=== PATIENT | female | born 1980 ===

== ENCOUNTER 2017-10-21 05:59 | Inpatient (IN) | payer BC, OTHER ==
[2017-10-21 06:22] VITALS: BMI 36.5
[2017-10-21 06:59] LABS: HEMOGLOBIN 12.9 g/dL (12.0-16.0); MEAN CELL VOLUME 89.6 fl (81.0-99.0); MEAN CORPUSCULAR HEMOGLOBIN 29.1 pg (27.0-31.0); MEAN CORPUSCULAR HGB CONC 32.5 g/dL (33.0-37.0); RBC 4.43 Mil/uL (3.80-5.20); RED CELL DISTRIBUTION WIDTH 13.4 % (11.5-14.5); WHITE BLOOD COUNT 5.1 K/uL (4.8-10.8)
[2017-10-21] MEDS ORDERED: Lactated Ringer's 1,000 ML IV ONE ×3 (07:24→09:40)
[2017-10-21] MEDS ORDERED: Propofol 10 mg/ml Inj (20 ML) ONE (07:34)
[2017-10-21] MEDS ORDERED: Rocuronium 10 mg/ml (5 ml) ONE ×2 (07:35→11:34)
[2017-10-21] MEDS ORDERED: Midazolam 2 MG/2 ML VIAL ONE (07:35)
[2017-10-21] MEDS ORDERED: ePHEDrine 50 mg/ml Inj ONE (07:35)
[2017-10-21] MEDS ORDERED: Succinylcholine 200 mg/10 ml Inj IV ONE (07:36)
[2017-10-21] MEDS ORDERED: Lidocaine 4% (Laryng-O-Jet) Kit MM ONE (07:37)
[2017-10-21] MEDS ORDERED: Bupivacaine 0.5% Inj(30mL) ONE (07:39)
[2017-10-21] MEDS ORDERED: Dexamethasone 4 mg/1 ml ONE (09:44)
[2017-10-21] MEDS ORDERED: Neostigmine Methylsulfate 3mg/3ml Syringe IV ONE (09:45)
[2017-10-21] MEDS ORDERED: Desflurane Inhalation Anesthetic Liq (240 ml) ONE ×2 (10:18→13:58)
[2017-10-21] MEDS ORDERED: HYDROmorphone 0.5 mg/0.5 ml ISec IVP PRN (14:34)
[2017-10-21] MEDS: HYDROmorphone 0.5 mg/0.5 ml ISec IVP PRN ×6 (14:40→15:58)
[2017-10-21] MEDS ORDERED: Lactated Ringer's 1,000 ML IV SCH (14:45)
[2017-10-21] MEDS: ceFAZolin 1 GM in Sodium Chloride 0.9% 100 ML IVPB SCH (15:00)
--- NOTE | 2017-10-21 18:59 | OP ---
PROCEDURE DATE: 10/21/2017 SURGEON: Jose L Beltrán MD. ASSISTED BY: Aj Villegas MD and about 2 hours into the surgery by Dr. Sahu. PREOPERATIVE DIAGNOSES: Pelvic pain; bladder pain; abdominal pain; lower back pain; sciatic pain; history of advanced endometriosis, stage IV; left ovarian cyst. POSTOPERATIVE DIAGNOSES: Pelvic pain; bladder pain; abdominal pain; lower back pain; sciatic pain; history of advanced endometriosis, stage IV; left ovarian cyst plus stage IV endometriosis extending to the sigmoid, the cecum and appendix and the right hemidiaphragm. PROCEDURE PERFORMED: A cystoscopy with bilateral ureteral catheterization and injection of ICG dye; hysteroscopy, diagnostic; da April robotic excision of endometriosis; excision of anterior bladder mass; left salpingectomy; left ovarian cystectomy and removal of endometrioma; bilateral ureterolysis and to be dictated separately by Dr. Villegas as a separate procedure, multiple excision of rectosigmoid masses, right appendectomy and excision of diaphragmatic endometriosis and repair. He will dictate these separately. ANESTHESIA: General endotracheal. ANESTHESIOLOGIST: Ashlyn Rodriguez MD. ESTIMATED BLOOD LOSS: 100 mL. FLUIDS: 1800 mL. URINE OUTPUT: 500 mL. PATHOLOGY: Samples of extensive peritoneal endometriosis from the left pelvic sidewall, left ovarian fossa, left periureteral, right periureteral, right ovarian fossa, posterior cervical, anterior rectal, anterior bladder wall, appendix, portion of cecum and portion of diaphragm. COMPLICATIONS: None. INDICATION FOR THE PROCEDURE: The patient is a 37-year-old female who presented with a prolonged history of severe pain, not controlled with medical treatment. The patient had a prior surgery at [facility] in [place] with gynecologic-oncology, it was an extensive operation, but the patient underwent recurrence within a year with both clinical and ultrasonographic evidence of recurrent pelvic mass, a completely obliterated cul-de-sac and extensive pelvic adhesions. The patient was counseled with regards to the benefits of the surgery and the likelihood of the surgery to solve her problem as well as with the potential risks of the surgery involving both bladder and bowel complications including, but not limited to fistulas, leak of bowel repairs as well as potential need for a chest tube if endometriosis on the diaphragm. After adequate counseling, the patient signed a consent and she was taken to the OR. DESCRIPTION OF PROCEDURE: After adequate anesthesia, the patient was placed in a dorsal lithotomy position and she was prepped and draped with greater tension to avoid any part of the body that will be subjected to pressure and those parts of the body were extensively padded. At this point, a timeout was called according to hospital policies and after this was done, attention was in the vaginal area where a cystoscope was inserted into the urethra under direct visualization. A pancystoscopy was performed revealing no evidence of mucosal lesions although there appeared to be an area of compression on the dome of the bladder. Both ureteral ostia were in the normal anatomical position and the left ureter at that point was cannulized utilizing a 5-Greenlandic open-ended catheter and 5 mL were injected of IC Green into the distal catheter. After removing the catheter, attention was on the right side where the open-ended catheter was advanced to the distal ureter and 5 mL of IC Green were injected into the distal ureter. This procedure was essential to the performance of this extremely difficult procedure. At this point, the cystoscope was removed and a 16-Greenlandic Renner was replaced. Attention was then in the vaginal area where a speculum was placed in the vagina. The anterior lip of the cervix was grasped and the cervix was dilated. At this point, the uterine manipulator was placed in the uterus and attention was at the abdomen where an open laparoscopy technique was used to enter the umbilicus and enter the peritoneum, which was entered in a blunt fashion and the cannula was then placed. The abdomen was desufflated and under direct visualization, three additional trocars were placed, an 8 mm left upper quadrant, a 10 mm left mid quadrant and an 8 mm right upper quadrant. At this point, the abdomen and pelvis was visualized with the following findings. There were endometriotic implants in the right hemidiaphragm and in the pericardial area. There were endometriosis implants on the cecum right by the ileocecal valve and on the right appendix. There were endometriosis implants on the anterior bladder with a very large bladder mass, thick involving all the way almost down to the round ligament on the left. There were endometriosis implants on the left fallopian tube, which was completely distorted and it lost its normal structure. There was a large 7 cm left ovarian endometrioma. The cul-de-sac was completely obliterated with significant endometriotic implants in the anterior aspect of the sigmoid and the right ovary was attached to the right pelvic sidewall. The first part of the procedure at this point utilizing robotic scissors and the bipolar grasper, the ovary was elevated and the endometrioma was drained with minimal spillage. At this point, the ovary was completely elevated out of the pelvis and the left ureter was visualized. The uterus was twisted towards the right hand side. The peritoneum was then grasped and the retroperitoneal space was entered. The ureter was identified utilizing fluorescent technology and a full dissection was performed opening up the peritoneum and lateralizing the ureter. Similarly on the right hand side, the right ovary was also elevated with some difficulty. Large amounts of chocolate type fluid appeared to come out, out of a pocket that was created, but it was not endometrioma. The ureter again on the right hand side was identified and it was followed all the way down from the pelvic rim all the way to the ureteral canal. On the right hand side, there were very significant fibrotic adhesions involving the right ureter. The ureter was firmly attached and kinked by fibrotic adhesions. A very careful dissection was performed dissecting completely the ovarian fossa and freeing up the ureter, which was also slightly kinked with a large amount of fibrotic tissue being removed. Multiple samples were sent then to pathology. At this point, attention was on the posterior aspect of the uterus where an extensive area of fibrotic endometriosis, deep infiltrating, was visible on the left ovarian fossa. This was dissected completely with extreme care to avoid the ovarian artery as well as the ureter, which was always kept in vision utilizing fluorescent technology. Once this was done, Dr. Villegas took over the console and dissected the rectum off the posterior aspect of the uterus. He will dictate this procedure separately. Additionally Dr. Villegas dissected multiple superficial endometriotic lesions on the serosa of the rectum, which were dissected off without entering the cavity. At this point, attention was on the anterior aspect of the uterus where a large bladder wall mass containing endometriosis was progressively dissected without entering the bladder proper or damaging the muscularis. This large mass was dissected off with great care and again sent over to Pathology. The left fallopian tube was completely destroyed by the endometriosis and it did not have a normal shape and had deep invasive lesions of endometriosis. So, as this was prior discussed with the patient and which the patient was consented for, a left salpingectomy was performed cutting along the mesosalpinx with extreme care not to damage any vascular supply to the ovary. At this point, a left ovarian cystectomy was performed by bluntly the endometrioma from the healthy ovarian tissue, this was removed in total in one sample and sent over to Pathology. There was minimal bleeding from this procedure. At this point, it was checked for hemostasis, there appeared to be excellent and Dr. Villegas will dictate separately in detail, but I will just summarize that this was a 3-step procedure, which involved undocking and re-docking and repositioning the da April robot, two additional times, one to proceed with the dissection of endometriosis by the cecum as well as the appendix and the second time and third part of the procedure were excision of diaphragmatic endometriosis was performed on the diaphragm. At the end of the procedure, it was checked for hemostasis, there appeared to be excellent. The robot was undocked, the abdomen was desufflated, the instruments were removed and the incision was closed in layers with 0-PDS for the fascia and 4-0 Monocryl for the skin. At the end of the procedure, all tapes and instruments were correct. The patient tolerated the procedure well, was taken to recovery room in excellent condition. Jose L Beltrán MD
--- NOTE | 2017-10-21 19:02 | RAD ---
PROCEDURE: CHEST RADIOGRAPH, 1 VIEW HISTORY: post op eval COMPARISON: None available. FINDINGS: LUNGS: Patient rotated toward the left. For questionable fibrotic changes identified in the inferior lung zones medially bilaterally though limited airspace disease not excluded here on acute or subacute basis. Further clinical correlation is advised. PLEURA: No pneumothorax or pleural fluid seen. CARDIOVASCULAR: Normal. OSSEOUS STRUCTURES: No significant abnormalities. VISUALIZED UPPER ABDOMEN: Normal. OTHER FINDINGS: None. IMPRESSION: Questionable airspace disease medial bases bilaterally with linear atelectasis or fibrosis seen at the bases as well.
[2017-10-21] MEDS: Lactated Ringer's 1,000 ML IV SCH (23:08)
[2017-10-22] MEDS: ceFAZolin 1 GM in Sodium Chloride 0.9% 100 ML IVPB SCH ×2 (04:05→04:07)
[2017-10-22] MEDS: Oxycodone/Acetaminophen 5/325 mg Tab PO PRN ×2 (04:14→08:42)
[2017-10-22] MEDS: Lactated Ringer's 1,000 ML IV SCH (06:47)
--- NOTE | 2017-10-22 07:52 | CP.PCM.DIS ---
Provider - Provider Date of Admission: 10/21/17 15:11 Attending physician: Jose L Beltrán Primary care physician: Jose L Beltrán Consults: None Time Spent in preparation of Discharge (in minutes): 35 Diagnosis - Discharge Diagnosis (1) Endometriosis Status: Acute (2) Endometriosis of appendix Status: Acute (3) Endometriosis of bladder Status: Acute (4) Endometriosis of colon Status: Acute (5) Endometriosis of fallopian tube Status: Acute (6) Endometriosis of intestine Status: Acute (7) Endometriosis of pelvis Status: Acute (8) Endometriosis of peritoneum Status: Acute (9) Endometriosis of uterus Status: Acute (10) Endometriosis, rectum Status: Acute (11) Endometriosis, ovary Status: Acute (12) Endometriosis, severe Status: Acute (13) Implanted endometriosis Status: Acute (14) Endometriosis, site unspecified Status: Acute (15) Ovarian cyst, left Status: Acute (16) S/P cystoscopy Status: Acute (17) Status post hysteroscopy Status: Acute (18) Ureteral adhesion, left Status: Acute (19) Ureteral adhesion, right Status: Acute (20) Endometrioma of ovary Status: Acute Hospital Course - Lab Results Lab Results: Most Recent Lab Values WBC 5.1 K/uL (4.8-10.8) 10/21/17 06:40 RBC 4.43 Mil/uL (3.80-5.20) 10/21/17 06:40 Hgb 12.9 g/dL (12.0-16.0) 10/21/17 06:40 Hct 39.7 % (34.0-47.0) 10/21/17 06:40 MCV 89.6 fl (81.0-99.0) 10/21/17 06:40 MCH 29.1 pg (27.0-31.0) 10/21/17 06:40 MCHC 32.5 g/dL (33.0-37.0) L 10/21/17 06:40 RDW 13.4 % (11.5-14.5) 10/21/17 06:40 Plt Count 207 K/uL (130-400) 10/21/17 06:40 Blood Type A POSITIVE 10/21/17 06:40 Blood Type Confirm A POSITIVE 10/21/17 08:10 Antibody Screen Negative 10/21/17 06:40 BBK History Checked No verified bt 10/21/17 06:40 - Hospital Course Hospital Course: 37F w/PMH sig for endometriosis admitted s/p cystoscopy w/bilateral uteral catetherization, injection of ICG dye, diagnostic hysteroscopy, da April robotic excision of extensive endometriosis, excision of anterior bladder mass, Left salpinectomy, Left ovarian cystectomy and removal of endometrioma; bilateral ureterolysis, multiple excisions of rectosigmoid masses, appendectomy with resection of cecum, excision of diaphragmatic endometriosis and repair. Pt did well overnight, pain well controlled. Renner was removed this AM- pt urinated post removal. Tolerating diet. Pt stable and ready to be discharged home. Diagnoses Extensive endometriosis Lesions on appendix Lesions on rectosigmoid Lesions on diaphragm Lesions on Left fallopian tube Left ovarian cyst Left ovarian endometrioma Lesions on bilateral ureters Diagnostic hysteroscopy Cystoscopy Discharge Exam - Head Exam Head Exam: ATRAUMATIC, NORMAL INSPECTION, NORMOCEPHALIC - Eye Exam Eye Exam: EOMI, Normal appearance - ENT Exam ENT Exam: Mucous Membranes Moist, Normal Exam - Neck Exam Neck exam: Full Rom, Normal Inspection - Respiratory Exam Respiratory Exam: NORMAL BREATHING PATTERN, UNREMARKABLE - Cardiovascular Exam Cardiovascular Exam: REGULAR RHYTHM, +S1, +S2 - GI/Abdominal Exam GI & Abdominal Exam: Soft, Tenderness (over surgical incision sites x 4). absent: Distended, Firm, Guarding, Rigid - Extremities Exam Extremities exam: normal inspection - Neurological Exam Neurological exam: Alert, CN II-XII Intact, Oriented x3 - Psychiatric Exam Psychiatric exam: Normal Affect, Normal Mood - Skin Skin Exam: Dry, Intact, Normal Color, Warm Additional comments: abdomen with island bandaids x 4; scant dried sanguinous strike through. Discharge Plan - Follow Up Plan Condition: GOOD Disposition: HOME/ ROUTINE Instructions: Endometriosis (DC) Additional Instructions: Please follow up with Dr. Beltrán in the office- call for an appointment in 1-2 weeks. No heavy lifting until cleared by Dr. Beltrán. You have outer bandaids which may be removed tomorrow. Do not shower until they are removed. Under the bandaids are a special glue- do not remove this, it will fall off on its' ok , ok to shower with it, gently washing with soap and water. Ok to resume normal diet. Please return to hospital if you start to experience fevers or chills. Prescription for pain medications already given to . Referrals: Jose L Beltrán [Primary Care Provider] -
[2017-10-22 11:04] VITALS: BP 109/60; PULSE 84; RESP 17; TEMP 99.9; O2SAT 98
[2017-10-22] MEDS ORDERED: ceFAZolin 1 GM in Sodium Chloride 0.9% 100 ML IVPB SCH (16:00)
--- NOTE | 2017-10-30 09:04 | PCM.OP ---
Operative Report - Operative Report Date of Surgery/Procedure: 10/21/17 Time of Surgery/Procedure: 10:00 Surgeon: Dr. Aj Villegas [employer] Motor Mechanic: Dr. Jose L Beltrán Anesthesia/Sedation: general/Dr. Rodriguez Pre-Operative Diagnosis: Abdominal pain and endometriosis Post-Operative Diagnosis: Abdominal pain and endometriosis involving the rectum , cecum and diaphragm Indication for Surgery: as above Operative Findings: Endometriosis involving the rectum, cecum (right colon) and diaphragm Procedure/Operation Description: 1-Complex excision right diaphragm endometriosis with complex repair. 2-Right colectomy (ceceum and appendix). 3- Excision multiple rectal endometriosis (times 3). Brief Histroy: This is a 37 year old woman brought to the operating room by Dr. Jose L Beltrán for abdominal pain and endometriosis. During the intital robotic exploration he noted multiple lesions invovling the rectum, cecum (right colon and appendix) and the right diaphragm. Dr. Beltrán requested intraoperative consultation and this is th report of that request. Description of the procedure: The patient had already been brought to the operating room by Dr. Beltrán (separate dictation Dr. Beltrán). After taking conrol of the robotic consule the first group of lesions involving the rectum were examined and with blunt and sharp dissection the first (of three)rectal lesion was incised circumfernetially with electrocautery and with blunt and sharp dissection it was dissected from the rectal wall. This first specimen was appropirately marked and sent to aptholgy separately. The other two rectal lesions were excised completely in a similar manner and sent to pathology each separately. Our attention then turned to the appendix and cecum. As the lesions invovled both structures the cecum and right colon were mobilized with blunt and sharp disection with the aid of electrocautery. With the right colon mobilized a 45 mm RA stpaler was introduced into the operative field and the right colon was transected with the stapler. The right colon (cecum, right colon and appendix) was removed and after being appropriately marked was sent to apthology as a separate en-bloc specimen. The operative areas of the rectum and right colectomy sites were examined and hemostasis was deemed adeqaute. The robot waas then repositioned for the upper right quadrant diaphragm. With the robotic devise in place the right dipahragm was examined and three large clusters of endometriosis was obvious by videoscopic examination. With initial sharp dissection the fist, largest cluster, was incised with electrocautery circumferentially. With blunt and sharp dissection the cluster of lesions were excised en-bloc with meticulous attention to hemostasis. the diaphragm along with the lesions were appropariately marked and sent separately to pathology for examination. After reduction of the pneumoperitoneum to about 10 mmHg the diaphragm defect was recosntructed with mutliple 3-0 V-Lock sutures. the surgical site of the diaphragm resection was examiined and hemostais was deemed adequate. Two smaller clusters of endometriosis were dessicated. The operation was then turned over to Dr. Beltrán (separate dictation Dr. Beltrán). Estimated Blood Loss: 100 cc Complications: none Discharge & Condition: stable
== END 2017-10-22 12:51 | disposition home or self-care (01) | DRG 743 ==
LOC: H.OPSURG 05:59 → H.PEDS 15:11
PROVIDERS: ADMIT Obstetrics & Gynecology Reproductive Endocrinology; ATTEND Obstetrics & Gynecology Reproductive Endocrinology
PROC: 0DBW0ZZ Excision of Peritoneum, Open Approach (ICD-10-PCS; 2017-10-21)
PROC: 8E0W0CZ Robotic Assisted Procedure of Trunk Region, Open Approach (ICD-10-PCS; 2017-10-21)
PROC: 0DBH0ZZ Excision of Cecum, Open Approach (ICD-10-PCS; 2017-10-21)
PROC: 0DBP0ZZ Excision of Rectum, Open Approach (ICD-10-PCS; 2017-10-21)
PROC: 0DBJ0ZZ Excision of Appendix, Open Approach (ICD-10-PCS; 2017-10-21)
PROC: 0TBB0ZZ Excision of Bladder, Open Approach (ICD-10-PCS; principal; 2017-10-21 08:30)
PROC: 0UT60ZZ Resection of Left Fallopian Tube, Open Approach (ICD-10-PCS; 2017-10-21 08:30)
PROC: 0BBT0ZZ Excision of Diaphragm, Open Approach (ICD-10-PCS; 2017-10-21 08:30)
PROC: 0UB20ZZ Excision of Bilateral Ovaries, Open Approach (ICD-10-PCS; 2017-10-21 08:30)
DX: N80.3 Endometriosis of pelvic peritoneum (principal); M54.40 Lumbago with sciatica, unspecified side; N73.6 Female pelvic peritoneal adhesions (postinfective); N32.9 Bladder disorder, unspecified; N80.1 Endometriosis of ovary; N80.5 Endometriosis of intestine; N80.8 Other endometriosis; N80.2 Endometriosis of fallopian tube; N80.0 Endometriosis of uterus; N83.202 Unspecified ovarian cyst, left side